=== PATIENT | female | born 1940 | race Caucasian/White ===

== ENCOUNTER 2020-12-20 16:25 | Emergency (ER) | payer MEDICARE, SELFPAY ==
[2020-12-20 16:25] VITALS: BP 184/85; PULSE 84; RESP 16; TEMP 36.4; O2SAT 100; BMI 25.2
--- NOTE | 2020-12-20 16:51 | CT_ITS ---
EXAM: CT CERVICAL SPINE WITHOUT INTRAVENOUS CONTRAST : 1940 CLINICAL INDICATION: Injury/Pain TECHNIQUE: Helically acquired images were obtained of the cervical spine without intravenous contrast. 2D reformatted images were reviewed. This CT exam was performed using one or more of the following dose reduction techniques: automated exposure control, adjustment of the mA and/or kV according to patient size, and/or use of iterative reconstruction technique. This report was created using [employer] report [employer] technology. COMPARISON: None. FINDINGS: VERTEBRAE: There is straightening of the normal cervical lordosis. DISCS/SPINAL CANAL/NEURAL FORAMINA: There is disc space narrowing at C3-4 and C6/7. There are degenerative changes seen in the left atlantoaxial joint. SOFT TISSUES: Unremarkable. No prevertebral soft tissue swelling. LYMPH NODES: Unremarkable. No cervical adenopathy. LUNG APICES: Unremarkable as visualized. Clear. CT/Spine Cervical without Contras IMPRESSION: 1. No acute osseous abnormalities. 2. Multilevel degenerative change with disc space narrowing. Individualized dose optimization techniques were used for this CT. at 1752 Reported and signed by: Jesus Cardona MD Electronically Signed: Jesus Cardona MD at 17:50 EDT Tel , Service support ,
--- NOTE | 2020-12-20 16:51 | CT_ITS ---
EXAM: CT HEAD WITHOUT INTRAVENOUS CONTRAST : 1940 CLINICAL INDICATION: Injury/Pain TECHNIQUE: Multiple axial images were obtained of the head without intravenous contrast. This CT exam was performed using one or more of the following dose reduction techniques: automated exposure control, adjustment of the mA and/or kV according to patient size, and/or use of iterative reconstruction technique. This report was created using [employer] report generation technology. COMPARISON: None. FINDINGS: BRAIN AND EXTRA-AXIAL SPACES: Unremarkable. No intra- or extra-axial hemorrhage. No evidence of acute infarct. No intracranial mass or mass effect. There is preservation of the coulter/white matter interface. Posterior fossa structures are unremarkable. Ventricles are appropriate for age. No hydrocephalus. Basal cisterns are patent. BONES/JOINTS: Unremarkable. No discrete lytic or blastic abnormalities. SINUSES: Unremarkable as visualized. Clear. MASTOID AIR CELLS: Unremarkable. Clear. ORBITS: Visualized globes, extraocular muscles, optic nerves and retrobulbar fat appear unremarkable. CT/Brain/Head without Contrast IMPRESSION: Negative head/brain CT without intravenous contrast. Individualized dose optimization techniques were used for this CT. at 1729 Reported and signed by: Jesus Cardona MD Electronically Signed: Jesus Cardona MD at 17:28 EDT Tel , Service support ,
--- NOTE | 2020-12-20 16:52 | ED.VIS.FALL ---
HPI HPI - Fall History of Present Illness Chief Complaint: Fall Informant: patient Narrative Narrative: Patient is a 80-year-old female presenting with headache and neck pain after fall. Patient had a fall in December 12, 8 days ago. She states she was trying to get out of her 's truck and reaching for the door when she lost her balance and fell forward. She hit her forehead on the pavement. She is wearing her glasses at the time and scratch them. She denies loss of consciousness. She is on any anticoagulation. She is on an alternate Tylenol and ibuprofen with no relief of her symptoms. The pain is in the back of her head on the left and rating down to her neck. Patient notes that for this past year she has been dealing with new onset of headaches and neck pain. She saw Dr. Boyle who did a neck injection 1 month ago and that had improved her headaches until this fall. Patient denies any acute vision changes, fever, chills, nausea or vomiting. She states the headache is pretty constant but fluctuates in intensity. She called her PCP office who stated they could not get her in to be seen today recommend she come to the emergency room for evaluation. [facility] Medical History Arthritis Home Medications levothyroxine 25 mcg PO DAILY 01/04/16 [History Last Taken 01/04/16] Allergy/AdvReac Type Severity Reaction Status Date / Time erythromycin base AdvReac Nausea/Vom/ Verified 12/20/20 16:25 Diarrhea Social History Smoking Status: Never smoker ROS ROS ED Constitutional Constitutional ED: Denies chills, fever(s) or malaise Eyes Eyes: Denies blurry vision or loss of vision ENT ENT ED: Denies rhinorrhea or sore throat Cardiovascular Cardiovascular: Denies chest pain or dizziness Respiratory/Chest Respiratory/Chest: Denies cough or dyspnea Gastrointestinal Gastrointestinal: Denies nausea or vomiting Genitourinary Genitourinary ED: Denies dysuria or hematuria Musculoskeletal Musculoskeletal: Reports neck pain; Denies arthralgias or myalgias Integumentary Denies rash or wounds Neurologic Neurologic: Reports headache(s); Denies focal weakness, paresthesias or weakness Psychiatric Psychiatric: Denies anxiety or behavioral changes EXAM Physical Exam Const Vital Signs: 12/20/20 16:25 12/20/20 16:43 12/20/20 18:30 Temperature 97.6 F L Temperature Source Temporal Pulse Rate 84 82 Respiratory Rate 16 16 Respiratory Effort Normal Non-Labored Respiratory Depth Normal Respiratory Pattern Normal Blood Pressure 184/85 H Blood Pressure Mean 118 Pulse Ox 100 98 Oxygen Delivery Method Room Air Room Air Positive well nourished and well developed General Appearance ED: well developed HEENT Reports normocephalic HEENT Narrative: Bilateral cerumen impactions. No signs of trauma on exam. atraumatic Neck full ROM and supple Neck Narrative: Left paraspinal tenderness palpation. No midline tenderness or step-off sign. General: tenderness Chest Wall inspection of chest normal Resp normal respiratory effort Cardio regular rate and regular rhythm Extremity normal to inspection and full ROM Neuro oriented x3, CN's II-XII intact bilaterally, no focal motor deficits and no sensory deficits noted Sensorium / Orientation: alert Motor Exam: Negative for general weakness Psych mental status grossly normal Skin Lesions: no lesions Rashes: no rashes MDM MDM MDM Narrative Medical decision making narrative: Patient evaluated for headache and neck pain in the setting of a fall last week. She has a normal neurologic exam. I suspect her headache is a tension headache. Given her age and mechanism I did obtain a head CT which does not show any acute fracture or traumatic brain injury. Patient will follow up with Dr. Boyle for her neck pain. Instructed to continue alternating Tylenol and ibuprofen for her pain. And to use Lidoderm patches as needed. Patient is counseled on signs and symptoms requiring return to the emergency room. Patient verbalizes agreement and understand this plan. Patient discharged home in stable and improved condition. Radiography Diagnostic Testing: Clinical Impression(s) from Imaging Studies Brain CT 12/20/20 16:51 IMPRESSION: Negative head/brain CT without intravenous contrast. Individualized dose optimization techniques were used for this CT. at 1729 Reported and signed by: Jesus Cardona MD Electronically Signed: Jesus Cardona MD at 17:28 EDT Tel , Service support , Cervical Spine CT 12/20/20 16:51 IMPRESSION: 1. No acute osseous abnormalities. 2. Multilevel degenerative change with disc space narrowing. Individualized dose optimization techniques were used for this CT. at 1752 Reported and signed by: Jesus Cardona MD Electronically Signed: Jesus Cardona MD at 17:50 EDT Tel , Service support , Discharge Plan Triage Chief Complaint: Fall ED Provider: Flaquita Garcia Dx/Rx/DC Orders Clinical Impression: Acute tension headache, Neck pain, Closed head injury Instructions: ED Mechanical Fall, ED Headache, Tension, ED Neck Pain Prescriptions: No Action levothyroxine 25 MCG tablet 25 mcg PO DAILY RF: 0 Primary Care Provider: Gregory Cook Referrals: Gregory Cook DO [Primary Care Provider] - Disposition Disposition: Home, Self Care Discharge Date/Time: 12/20/20 18:32
[2020-12-20 18:30] VITALS: PULSE 82; RESP 16; O2SAT 98
== END 2020-12-20 18:32 | disposition home or self-care (01) ==
PROVIDERS: Emergency Provider Emergency Medicine; PCP Student in an Organized Health Care Education/Training Program
DX: G44.209 Tension-type headache, unspecified, not intractable (principal); W19.XXXA Unspecified fall, initial encounter; S09.90XA Unspecified injury of head, initial encounter; Y93.9 Activity, unspecified; Y92.9 Unspecified place or not applicable; M19.90 Unspecified osteoarthritis, unspecified site
CPT/HCPCS: 70450; 72125; 99282

== ENCOUNTER 2020-12-27 15:30 | Outpatient (RCR) | payer MEDICARE, SELFPAY ==
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
--- NOTE | 2021-04-16 10:59 | HP.PT.NRP ---
JP MUELLER was seen in my office for initial evaluation on 11/24/20. The following Plan of Care was established for this patient: Initial Frequency: 2x /Week Initial Duration: 4 Weeks Patient/Client Instruction: Educate patient on: Condition, Plan of Care For the Purpose of:: To decrease pain, To increase ROM, To improve muscle performance and motor function, To improve ability to perform ADL's, To increase tolerance to activity/condition/position, To improve performance and independence with ADL's, To improve ability of physical actions for home/community/work/leisure, To improve health of tissue, To decrease soft tissue restriction, To increase flexibility/ROM, To prevent re-injury Therapeutic Exercise to Include: Strength training, Endurance training, Balance training, Postural training, Flexibilty training, Active ROM For the Purpose of:: To decrease pain, To increase ROM, To improve muscle performance and motor function, To improve ability to perform ADL's, To increase tolerance to activity/condition/position, To improve ability of physical actions for home/community/work/leisure, To improve health of tissue, To decrease soft tissue restriction, To increase flexibility/ROM, To improve safety with gait TENS: Yes IF ES: Yes Cryotherapy (ice pack, ice massage): Yes Thermo therapy (hot pack): Yes Ultrasound (thermal/non thermal): Yes For the Purpose of:: To decrease pain, To increase ROM, To improve nutrient delivery to tissue, To increase oxygenation perfusion, To decrease soft tissue restriction, To increase flexibility/ROM This patient was last seen in our office . Pertinent comments regarding their Physical therapy will appear below: Patient seen for back and hip pain and chronic neck pain for PT for stretching ,strengthening hips back and foam rolling to I T-BAND , Patient has Return to pickle ball and and HEP At this point I will be discontinuing this patient from physical therapy. I would be happy to see this patient again in the future if found appropriate by the physician. Thank you! Soy Cody, PT, Cert MDT, OCS Balance/Gait/Functional tests - Balance/Special Test Scores Lower Extremity Functional Score: 66
== END 2020-12-27 19:00 | disposition home or self-care (01) ==
LOC: PT 15:30
PROVIDERS: PCP Student in an Organized Health Care Education/Training Program; Referring Provider Clinical Nurse Specialist; Visit Provider Clinical Nurse Specialist
DX: M54.41 Lumbago with sciatica, right side (principal); M54.2 Cervicalgia; G89.29 Other chronic pain
CPT/HCPCS: 97110; 97162

== ENCOUNTER 2021-03-21 15:39 | Outpatient (CLI) | payer MEDICARE, SELFPAY | END 2021-03-21 23:59 | disposition short-term general hospital (02) | LOC: LABSPEC 15:41 | PROVIDERS: PCP Student in an Organized Health Care Education/Training Program; Visit Provider Physician Assistant | DX: Z20.822 Contact with and (suspected) exposure to COVID-19 (principal) | CPT/HCPCS: 87635; U0003; U0005 ==

== ENCOUNTER 2023-06-23 17:08 | Emergency (ER) | payer MEDICARE, SELFPAY ==
[2023-06-23 17:08] VITALS: BP 160/73; PULSE 85; RESP 16; TEMP 36.4; O2SAT 100; BMI 24.6
--- NOTE | 2023-06-23 18:30 | US_ITS ---
STUDY: ULTRASOUND GALLBLADDER REASON FOR VISIT: Female, 83 years old. Abdominal pain TECHNIQUE: Ultrasound evaluation of the gallbladder was performed with real-time and static coulter-scale imaging. TECHNICAL QUALITY: Adequate. COMPARISON: None. FINDINGS: Gallbladder: Normal distended gallbladder. The gallbladder wall measures 2 mm. There is a negative sonographic Hudson''s sign. There is no pericholecystic fluid. There are no gallstones. Common Bile Duct (C.B.D.): The common bile duct measures 5 mm. US/Gallbladder IMPRESSION: Normal gallbladder ultrasound examination. Electronically Signed: Adam Corona MD at 20:54 EDT ,
--- NOTE | 2023-06-23 18:31 | EDS_ITS ---
HPI <JOSHUA Cruz - Last Filed: 06/23/23 21:25> History of Present Illness Chief Complaint: Abd Pain Narrative Narrative: Patient is an 83-year-old female with history of hypertension, who presents to the emergency department with 2 weeks of epigastric pain. Patient states that this does not correlate with any of her meals, she does not have any bowel or bladder changes. Patient states it is epigastric that radiates to both the right and left side. Patient is concerned she might have an ulcer. Patient denies any fever or chills, she states over the last couple nights this has kept her up at night Patient leaves for vacation in 4 days and she is concerned. She denies any fever or chills. PFSH <JOSHUA Cruz - Last Filed: 06/23/23 21:25> [facility] Medical History (Updated 06/23/23 @ 21:04 by JOSHUA Cruz) Arthritis Encounter for screening for COVID-19 Home Medications levothyroxine 25 mcg tablet 25 mcg PO DAILY 01/04/16 [History Last Taken 01/04/16] omeprazole 40 mg capsule,delayed release 40 mg PO DAILY #30 caps 06/23/23 [Rx Last Taken Unknown] Allergy/AdvReac Type Severity Reaction Status Date / Time erythromycin base AdvReac Nausea/Vom/ Verified 06/23/23 17:10 Diarrhea Social History Smoking Status: Former smoker ROS <JOSHUA Cruz - Last Filed: 06/23/23 21:25> ROS ED ROS Narrative Constitutional: Negative for fever, chills, weight loss, weakness Eyes: Negative for vision loss, vision change, double vision ENT: Negative for any sore throat, ear pain, congestion Cardiovascular: Negative for any chest pain, tightness, palpitations Respiratory: Negative for any cough, sputum production, hemoptysis, dyspnea, dyspnea on exertion, orthopnea Gastrointestinal: Negative for any nausea, vomiting, diarrhea, constipation, blood in stool, blood in vomit. Positive for abdominal pain, epigastric pain : Negative for any urinary frequency, dysuria, retention, blood in urine Muscle skeletal: Negative for any neck pain, back pain Neurological: Negative for any headache, syncope, dizziness Skin: Negative for any rashes, itching, abrasions, lacerations Psychiatric: Negative for any depression, anxiety, stress, suicidal ideation, homicidal ideation Hematologic: Negative for any excessive bruising, easy bleeding EXAM <JOSHUA Cruz - Last Filed: 06/23/23 21:25> Physical Exam Narrative Exam Narrative: Vital signs reviewed. HEET: Head normocephalic atraumatic, TMs clear bilaterally. Posterior pharynx is clear, moist mucous membranes. Nares clear bilaterally. Neck: Supple with no lymphadenopathy or tenderness. No signs of meningismus. Cardiac: Regular rate and rhythm no murmurs gallops or rubs, equal peripheral pulses bilaterally. Respiratory: Lungs clear to auscultation bilaterally. No chest tenderness. Abdomen: Soft, tenderness to the right upper abdomen, negative Hudson sign nondistended. No abdominal bruit or pulsatile masses. No hepatosplenomegaly Extremities: No peripheral edema, no signs of gross trauma or deformity. Active full range of motion of all extremities. Neuro: Cranial nerves II through XII intact, no focal neurological deficits. Skin: Clean dry and intact with no rash, purpura, petechiae, vesicles or pustules. Backs/flank: No CVA tenderness, no midline spinal tenderness, no deformity. Psych: Normal mood and affect. No SI, HI or acute psychosis. Const Vital Signs: 06/23/23 17:08 06/23/23 19:08 06/23/23 21:00 Temperature 97.6 F L Temperature Source Temporal Pulse Rate 85 78 84 Respiratory Rate 16 16 16 Blood Pressure 160/73 H 200/76 H Blood Pressure Mean 102 117 Pulse Ox 100 96 96 Oxygen Delivery Method Room Air Room Air Room Air 06/23/23 21:21 Temperature 97.9 F Temperature Source Pulse Rate 69 Respiratory Rate 16 Blood Pressure 190/76 H Blood Pressure Mean 114 Pulse Ox 97 Oxygen Delivery Method Positive well nourished and well developed General Appearance ED: well developed <Dr. Deshawn Dobbs DO - Last Filed: 06/23/23 23:09> Physical Exam Const Vital Signs: 06/23/23 17:08 06/23/23 19:08 06/23/23 21:00 Temperature 97.6 F L Temperature Source Temporal Pulse Rate 85 78 84 Respiratory Rate 16 16 16 Blood Pressure 160/73 H 200/76 H Blood Pressure Mean 102 117 Pulse Ox 100 96 96 Oxygen Delivery Method Room Air Room Air Room Air 06/23/23 21:21 Temperature 97.9 F Temperature Source Pulse Rate 69 Respiratory Rate 16 Blood Pressure 190/76 H Blood Pressure Mean 114 Pulse Ox 97 Oxygen Delivery Method [facility] <Brandon WillJOSHUA - Last Filed: 06/23/23 21:25> [facility] Lab Data Labs: Laboratory Results - last 24 hr 06/23/23 19:00 WBC 6.5 RBC 4.04 L Hgb 12.3 Hct 37.8 MCV 93.6 MCH 30.4 MCHC 32.5 RDW Std Deviation 44.7 H RDW Coeff of Tristen 13.0 Plt Count 178 MPV 12.2 H Immature Gran % (Auto) 0.300 Neut % (Auto) 65.6 Lymph % (Auto) 24.7 [place] % (Auto) 6.9 Eos % (Auto) 2.0 Baso % (Auto) 0.5 Absolute Neuts (auto) 4.3 Absolute Lymphs (auto) 1.60 Nucleated RBC % 0 Sodium 136 Potassium 5.0 Chloride 105 Carbon Dioxide 23.0 Anion Gap 8 BUN 55 H Creatinine 1.47 H Estim Creat Clear Calc 23.03 Est GFR (MDRD) Af Amer 44 L Est GFR (MDRD) Non-Af 36 L BUN/Creatinine Ratio 37.4 H Glucose 99 Calcium 9.8 Total Bilirubin 0.40 AST 36 ALT 32 Alkaline Phosphatase 120 H Troponin I High Sens 20 Total Protein 7.0 Albumin 3.5 Globulin 3.5 Albumin/Globulin Ratio 1.0 Lipase 46 Radiography Diagnostic Testing: Clinical Impression(s) from Imaging Studies Gallbladder Ultrasound 06/23/23 18:30 IMPRESSION: Normal gallbladder ultrasound examination. Electronically Signed: Adam Corona MD at 20:54 EDT , EKG Normal sinus rhythm: Attestation: I personally reviewed and interpreted this EKG as follows: Interpretation: Sinus Rhythm Comments: Normal sinus rhythm, rate of 71 bpm, CA interval 202 ms, QRS duration 88 ms, no acute ST elevation, no acute infarct noted. Treatment and Re-Evaluation :: Differential diagnosis includes however is not limited to: Acute cholecystitis, biliary colic, gastritis, gastroenteritis, GERD, pancreatitis Patient appears to be in no obvious respiratory distress, patient's vital signs are stable, patient appears generally well. Patient's physical examination yielded no red flag signs, patient had slight discomfort on palpation of the right epigastric area. Patient received a right upper quadrant ultrasound looking for any dilatation, gallbladder sludge, cholecystitis. Patient wishes to basic laboratory values including CBC, CMP, lipase, patient be given GI cocktail to see if this gives her any relief. On reevaluation, the patient was asymptomatic. Patient's laboratory values showed a normal CBC, patient's chemistries did show some renal sufficiency with a creatinine of 1.47, patient has been up to 2 previous, this is improvement. Lipase was negative. Patient does have a slight elevation in alkaline phosphatase of 120, years ago, it was 202. Patient's troponin was negative, EKG was unremarkable. Patient's ultrasound of the right upper quadrant shows normal gallbladder no acute process. At this time, patient be diagnosed with gastritis, placed on omeprazole. Will follow-up with GI. Instructed return for any worsening symptoms, stable for discharge. <Dr. Deshawn Dobbs, DO - Last Filed: 06/23/23 23:09> [facility] Lab Data Labs: Laboratory Results - last 24 hr 06/23/23 19:00 WBC 6.5 RBC 4.04 L Hgb 12.3 Hct 37.8 MCV 93.6 MCH 30.4 MCHC 32.5 RDW Std Deviation 44.7 H RDW Coeff of Tristen 13.0 Plt Count 178 MPV 12.2 H Immature Gran % (Auto) 0.300 Neut % (Auto) 65.6 Lymph % (Auto) 24.7 [place] % (Auto) 6.9 Eos % (Auto) 2.0 Baso % (Auto) 0.5 Absolute Neuts (auto) 4.3 Absolute Lymphs (auto) 1.60 Nucleated RBC % 0 Sodium 136 Potassium 5.0 Chloride 105 Carbon Dioxide 23.0 Anion Gap 8 BUN 55 H Creatinine 1.47 H Estim Creat Clear Calc 23.03 Est GFR (MDRD) Af Amer 44 L Est GFR (MDRD) Non-Af 36 L BUN/Creatinine Ratio 37.4 H Glucose 99 Calcium 9.8 Total Bilirubin 0.40 AST 36 ALT 32 Alkaline Phosphatase 120 H Troponin I High Sens 20 Total Protein 7.0 Albumin 3.5 Globulin 3.5 Albumin/Globulin Ratio 1.0 Lipase 46 Radiography Diagnostic Testing: Clinical Impression(s) from Imaging Studies Gallbladder Ultrasound 06/23/23 18:30 IMPRESSION: Normal gallbladder ultrasound examination. Electronically Signed: Adam Coroan MD at 20:54 EDT , Treatment and Re-Evaluation :: Differential diagnosis includes however is not limited to: Acute cholecystitis, biliary colic, gastritis, gastroenteritis, GERD, pancreatitis Patient appears to be in no obvious respiratory distress, patient's vital signs are stable, patient appears generally well. Patient's physical examination yielded no red flag signs, patient had slight discomfort on palpation of the right epigastric area. Patient received a right upper quadrant ultrasound looking for any dilatation, gallbladder sludge, cholecystitis. Patient wishes to basic laboratory values including CBC, CMP, lipase, patient be given GI cocktail to see if this gives her any relief. On reevaluation, the patient was asymptomatic. Patient's laboratory values showed a normal CBC, patient's chemistries did show some renal sufficiency with a creatinine of 1.47, patient has been up to 2 previous, this is improvement. Lipase was negative. Patient does have a slight elevation in alkaline phosphatase of 120, years ago, it was 202. Patient's troponin was negative, EKG was unremarkable. Patient's ultrasound of the right upper quadrant shows normal gallbladder no acute process. At this time, patient be diagnosed with gastritis, placed on omeprazole. Will follow-up with GI. Instructed return for any worsening symptoms, stable for discharge. ED attending note: I evaluated the patient in conjunction with the LINO. I agree with his/her statements and above findings. I have personally performed a face to face assessment of the patient and have reviewed the LINO Note. I performed a substantive portion of the visit including all aspects of the following. I personally saw the patient performed chart review, physical exam, reviewed labs, imaging (if obtained), and formulated a treatment and management plan. This note was generated with Talkray[employer] software. It may contain incorrect words, spelling, and punctuation that were not noted in review of the chart prior to signing. Discharge Plan Triage Chief Complaint: Abd Pain ED Midlevel Provider: Brandon Will ED Provider: Deshawn Dobbs Dx/Rx/DC Orders Clinical Impression: Gastritis, Acute epigastric pain Instructions: ED Gastritis (Adult) Prescriptions: New omeprazole 40 mg capsule,delayed release(DR/EC) 40 mg PO DAILY Qty: 30 1RF No Action levothyroxine 25 MCG tablet 25 mcg PO DAILY Patient Comments: THYROID Primary Care Provider: Gregory Cook Referrals: Gregory Cook DO [Primary Care Provider] - Friend,DO Ken [Med Staff - Active Staff] - Activity Restrictions/Additional Instructions: Please follow-up outpatient. Please follow-up with GI. Take the omeprazole in the morning. Return for any worsening chest pain shortness of breath fever chills nausea or vomiting. Disposition Disposition: Home, Self Care Discharge Date/Time: 06/23/23 21:25
--- NOTE | 2023-06-23 18:45 | EKG12_ITS ---
Test Reason : DYSRHYTHMIA Blood Pressure : / mmHG Vent. Rate : 071 BPM Atrial Rate : 071 BPM P-R Int : 202 ms QRS Dur : 088 ms QT Int : 396 ms P-R-T Axes : 040 -22 006 degrees QTc Int : 430 ms Normal sinus rhythm Normal ECG Confirmed by Ervin Neumann ([id number]), dictionary editor NEHAL ROBB ([id number]) on 06/24/2023 10:02:13 AM Referred By: Confirmed By:Ervin Neumann
[2023-06-23 19:06] LABS: Absolute Neutrophil Count 4.3 X10^3/uL (2.0-7.7); Basophil# 0.03 X10^3/uL; Basophil% 0.5 % (0-1); Eosinophil# 0.13 X10^3/uL; Hematocrit 37.8 % (37-47); Hemoglobin 12.3 g/dL (12.0-15.0); Lymphocyte % 24.7 % (19-41); Mean Corp Hgb Conc 32.5 g/dL (32-36); Mean Corpuscular Hgb 30.4 pg (27.0-32.0); Mean Corpuscular Volume 93.6 fL (81-99); Mean Platelet Vol. 12.2 fl (6.2-12.0); Monocyte# 0.45 X10^3/uL; Monocyte% 6.9 % (0-10); NRBC Flagged by Analyzer 0 % (0-5); Neutrophil # 4.25 X10^3/uL (2.7-7.7); Neutrophil % 65.6 % (47-70); Platelet Count 178 K/mm3 (150-450); RBC Distribution Width SD 44.7 fl (35.1-43.9); Red Blood Count 4.04 M/mm3 (4.2-5.4); White Blood Count 6.5 K/mm3 (4.4-11.0)
[2023-06-23 19:08] VITALS: PULSE 78; RESP 16; O2SAT 96
[2023-06-23] MEDS: Mag Hydrox/Al Hydrox/Simeth 30 ML UDC PO (19:25)
[2023-06-23 19:26] LABS: AST(SGOT) 36 U/L (15-37); Alanine Aminotransfer ALT/SGPT 32 U/L (13-56); Albumin, Serum 3.5 g/dL (3.2-5.0); Alkaline Phosphatase 120 U/L (45-117); Anion Gap 8 (5-15); BUN 55 mg/dL (7-18); BUN/Creat Ratio 37.4 RATIO (10-20); Calcium,Total 9.8 mg/dL (8.5-10.1); Chloride 105 mmol/L (98-107); Creatinine, Serum 1.47 mg/dL (0.55-1.02); EST Glomerular Filtration Rate 36 mL/min (>60); Est Glom Filt Rate - Afr Amer 44 mL/min (>60); Estimated Creatinine Clearance 23.03 ml/min; Globulin 3.5 g/dL (2.2-4.2); Glucose 99 mg/dL (74-106); Lipase 46 U/L (13-75); Sodium Level 136 mmol/L (136-145); Troponin-I HS 20 pg/mL (3.0-54.0)
[2023-06-23] MEDS: 0.9% Normal Saline (1000mL) 1,000 ML 999 ML IV (20:38)
[2023-06-23 21:00] VITALS: BP 200/76; PULSE 84; RESP 16; O2SAT 96
[2023-06-23 21:21] VITALS: BP 190/76; PULSE 69; RESP 16; TEMP 36.6; O2SAT 97
== END 2023-06-23 21:25 | disposition home or self-care (01) ==
PROVIDERS: Nurse Practitioner; Emergency Provider Emergency Medicine; PCP Student in an Organized Health Care Education/Training Program; Visit Provider Emergency Medicine
DX: R10.13 Epigastric pain (principal); K29.70 Gastritis, unspecified, without bleeding; I10 Essential (primary) hypertension; Z87.891 Personal history of nicotine dependence
CPT/HCPCS: 76705; 80053; 83690; 84484; 85025; 93005; 96360; 99283; J7030; A4216

== ENCOUNTER 2023-08-15 11:30 | Outpatient (RCR) | payer MEDICARE, SELFPAY ==
--- NOTE | 2023-05-28 16:19 | HP.PTEVAL_ITS ---
Patient's Visit Information Visit Information Visit Information: JP MUELLER is a 83 year old F referred to Physical Therapy by Dr. Gregory Cook DO with a diagnosis of L sided sciatica. Date of Evaluation: 05/28/23 Physical Therapist: Praful Roy DPT Visit Plan Frequency: 1x/Week Duration: 6 Weeks Plan: -hip and LE strengthening (especially hamstrings, will need to start out light) -trunk ROM and neutral spine strengthening -hamstring stretching (can add STM if needed to back of HS) Pt overall needs to strengthen, had a lot of hamstring cramping during IE, pain may be related to back or hamstrings Subjective Subjective: Pt presents to PT with low back pain/sciatica that began about a month ago, with no BRENDA. Pt reports pain in her L leg, worse with bending over. Muscle relaxers and pain meds help, was getting cramps in legs at night but meds have helped, also uses biofreeze. Pt sleeps on her side, sleeping fair. 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 Pain worse in the morning, but gets a little better after a few hours. GOALS: get rid of pain, navigate stairs with less pain Pain Back: Pain Intensity (Out of 10): 3 Pain Intensity Range: 2 and 9 Objective Objective: ROM: lumbar - flex 100% pulling in legs, ext 100% felt better on back, R LSB 100%, L LSB 75%, R rotation 100%, L rotation 100% MMT: L - knee ext 4-/5, knee flex 3+/5 cramping, DF 4+/5, PF 4+/5, hip flex 3+/5, hip ABD 3/5, hip ext 3+/5 R - knee ext 4-/5, knee flex 4-/5, DF 4+/5, PF 4+/5, hip flex 3+/5 felt pull in ant hip, hip ABD 3/5, hip ext 3+/5 PALPATION: increased tightness 5xSTS: 11.20s with no UE use, one mild LOB but self corrected GAIT: increased trunk and pelvic sway, slight scissor gait STAIRS: uses unilateral HR, no pain CHIP: no pain in back, still had some leg pain Pt had multiple hamstring cramps in madeleine LEs throughout session and has significant weakness of madeleine LEs/hip, with LLE more affected than R. Focus on strengthening, appears to be more hamstring related than back origin. 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 Rehabilitation Potential: Good Anticipated Interventions Patient/Client Instruction: Educate patient on: Plan of Care For the Purpose of:: To decrease pain, To increase ROM, To improve muscle performance and motor function, To improve ability to perform ADL's, To increase tolerance to activity/condition/position, To decrease level of supervision to perform tasks, To improve ability of physical actions for home/community/work/leisure, To improve gait and locomotor functions, To decrease soft tissue restriction, To increase flexibility/ROM, To improve safety, To improve health and function, To improve self management, To prevent re-injury, To improve ability to perform tasks related to life management and To improve tolerance to ADL's Therapeutic Exercise to Include: Strength training, Balance training, Agility training, Body mechanics, Postural training, Flexibilty training, Neuromotor development, Passive ROM, Active ROM, Dynamic Lumbar Stabilization and Scapular Strength/Stabilization For the Purpose of:: To decrease pain, To decrease swelling/inflammation, To improve ability of physical actions for home/community/work/leisure, To improve gait and locomotor functions, To improve health of tissue, To decrease soft tissue restriction, To improve balance, To improve safety with gait, To assume or resume ADL's, To improve safety, To improve health and function, To foster healthy habits, To improve self management, To prevent re-injury, To improve ability to perform tasks related to life management and To improve tolerance to ADL's Manual Therapy Techniques to Include: Mobilization, Passive ROM and Soft tissue mobilization TENS: Yes Cryotherapy (ice pack, ice massage): Yes Thermo therapy (hot pack): Yes Ultrasound (thermal/non thermal): Yes For the Purpose of:: To decrease pain, To decrease swelling/inflammation and To increase ROM Text: Thank you for the opportunity to evaluate your patient. For Medicare and Medicare HMO plans, please review the plan of care and approve it. It will need to be FAXED BACK to us at [phone] for Medicare purposes. For Medicare only, by signing this I certify the plan of care. Please let me know if there are questions or concerns regarding this plan of care. Physician Signature: Date:___
--- NOTE | 2023-08-15 12:24 | HP.PTREVAL_ITS ---
Re-Evaluation Intro: Dr. Gregory Cook, DO, It has been my pleasure to treat JP MUELLER over the last 12 visits for L sided sciatica. Please see the progress note below for an update on the physical therapy plan of care! Subjective Subjective: Last visit. 2 tyleonol if pain maybe a couple times per week. Pain in the last week 2/10 on those days. Walking distance has not been tested. Doing home activities normally. Sleeping well. HEP: HS stretch, LE adn core strength, stretching. No f/u with doctor. Has not tried pickleball. Objective Objective/Function: Full aROM LS without pain, R HS feels slightly tight but good ROM with full 90/90 test. Walking normally, sidestepping for pickle ball normal. extend POC one more month to f/u as patient to try pickleball. That is the main goal with good prognosis Plan Plan Plan: f/u one month to ensure pickle ball going well, progress HEP(strength if needed) and d/c Call prior if pain returns. Balance/Gait/Functional tests Balance/Special Test Scores Oswestry Low Back Score: 2 Goals Goals Goal 1:: Pt will report <2/10 pain at worst while standing at work Goal Time Frame: 4-6 Weeks Goal Progress: Goal Met Goal 2:: Pt will be able to play pickleball with <3/10 pain Goal Time Frame: 4-6 Weeks Goal Progress: n ot tried, approp Goal 3:: Pt will be able to bend down and pepper picker objects off the floor with <2/10 pain Goal Time Frame: 4-6 Weeks Goal Progress: Goal Met Anticipated Interventions Anticipated Interventions Patient/Client Instruction: Educate patient on: Plan of Care For the Purpose of:: To decrease pain, To increase ROM, To improve muscle performance and motor function, To improve ability to perform ADL's, To increase tolerance to activity/condition/position, To decrease level of supervision to perform tasks, To improve ability of physical actions for home/community/work/leisure, To improve gait and locomotor functions, To decrease soft tissue restriction, To increase flexibility/ROM, To improve safety, To improve health and function, To improve self management, To prevent re-injury, To improve ability to perform tasks related to life management and To improve tolerance to ADL's Therapeutic Exercise to Include: Strength training, Balance training, Agility training, Body mechanics, Postural training, Flexibilty training, Neuromotor development, Passive ROM, Active ROM, Dynamic Lumbar Stabilization and Scapular Strength/Stabilization For the Purpose of:: To decrease pain, To decrease swelling/inflammation, To improve ability of physical actions for home/community/work/leisure, To improve gait and locomotor functions, To improve health of tissue, To decrease soft tissue restriction, To improve balance, To improve safety with gait, To assume or resume ADL's, To improve safety, To improve health and function, To foster healthy habits, To improve self management, To prevent re-injury, To improve ability to perform tasks related to life management and To improve tolerance to ADL's Manual Therapy Techniques to Include: Mobilization, Passive ROM and Soft tissue mobilization TENS: Yes Cryotherapy (ice pack, ice massage): Yes Thermo therapy (hot pack): Yes Ultrasound (thermal/non thermal): Yes For the Purpose of:: To decrease pain, To decrease swelling/inflammation and To increase ROM Re-Evaluation Ending Re-evaluation ending: Please do not hesitate to contact me at [phone] by phone or if you have questions or concerns regarding this new plan of care! Sincerely, [place], DPT, OCS, CSCS
== END 2023-08-15 19:00 | disposition home or self-care (01) ==
LOC: PT 11:30
PROVIDERS: PCP Student in an Organized Health Care Education/Training Program; Referring Provider Student in an Organized Health Care Education/Training Program; Visit Provider Student in an Organized Health Care Education/Training Program
DX: M54.32 Sciatica, left side (principal)
CPT/HCPCS: 97110; 97161; 97530

== ENCOUNTER → 2024-12-29 | Outpatient (CLI) | payer MEDICARE, SELFPAY | END | disposition home or self-care (01) | LOC: LABSPEC 15:40 | PROVIDERS: PCP Student in an Organized Health Care Education/Training Program; Referring Provider Dermatology; Visit Provider Dermatology | DX: T81.40XA Infection following a procedure, unspecified, initial encounter (principal); X58.XXXA Exposure to other specified factors, initial encounter | CPT/HCPCS: 87070; 87077; 87186; 87205 ==